=== PATIENT | female | born 2000 | race Two or more races ===

== ENCOUNTER 2024-06-24 11:48 | Emergency (ER) | payer OTHER, SELFPAY ==
[2024-06-24 11:51] VITALS: BP 145/93; PULSE 88; TEMP 36.8; O2SAT 99; BMI 45.7
--- NOTE | 2024-06-24 12:07 | ED.GENADUL1 ---
HPI HPI - General Adult General Chief complaint: Allergic Reaction Stated complaint: SKIN IRRITATION Time Seen by Provider: 06/24/24 11:52 Source: patient Mode of arrival: walk-in Limitations: no limitations History of Present Illness HPI narrative: 24-year-old female presents for pruritic rash. It started on Friday, June 21, 3 days ago. She started Wellbutrin a month ago and then used a new soap over the weekend. It is all over her body and her upper lip has been swollen. She felt like something was in her throat and she was directed here by her PCP. No difficulty swallowing. Related Data Home Medications ?Medication ?Instructions ?Recorded ?Confirmed bupropion HCl 150 mg tablet,12 hr 150 mg PO DAILY 06/24/24 06/24/24 sustained-release Allergies Allergy/AdvReac Type Severity Reaction Status Date / Time No Known Drug Allergies Allergy Verified 06/24/24 11:51 Opioid HPI Opioid Management Most Recent Opioid Data: No Data to Display Review of Systems ROS Narrative A ten point review of systems is negative except as noted above. PFSH PFSH Social History Little interest or pleasure in doing things: not at all Feeling down, depressed, or hopeless: not at all Exam Narrative Exam Narrative: Nurses note and vital signs reviewed and patient is not hypoxic. General: The patient appears well and in no apparent distress. Patient is resting comfortably on cart. Skin: Warm, dry, no pallor noted. There is erythematous rash scattered on various areas of her body including her legs anterior and posterior torso and arms. Head: Normocephalic, atraumatic Eye: Normal conjunctiva, no drainage Ears, Nose, Mouth, and Throat: oral mucosa is moist. Nares patent. Upper lip is mildly swollen. Uvula is not enlarged and she is handling her oral secretions well. No swelling to the floor of her mouth. Cardiovascular: Regular Rate and Rhythm Respiratory: Patient is in no distress, no accessory muscle use, lungs are clear to auscultation, no wheezing, rales or rhonchi Back: non-tender GI: Soft and nontender Musculoskeletal: The patient has no evidence of calf tenderness, no pitting edema, symmetrical pulses noted bilaterally Neurological: A&O, normal speech Psychiatric: Cooperative Constitutional Vital Signs, click to edit/add: Last Vital Signs Temp 98.3 F 06/24/24 11:51 Pulse 82 06/24/24 13:18 Resp 18 06/24/24 13:18 BP 124/79 06/24/24 13:18 Pulse Ox 100 06/24/24 13:18 O2 Del Method Room Air 06/24/24 13:18 Course Vital Signs Vital signs: Vital Signs Temperature 98.3 F 06/24/24 11:51 Pulse Rate 88 06/24/24 11:51 Respiratory Rate 20 06/24/24 11:51 Blood Pressure 145/93 H 06/24/24 11:51 Pulse Oximetry 99 06/24/24 11:51 Oxygen Delivery Method Room Air 06/24/24 11:51 Temperature 98.3 F 06/24/24 11:51 Pulse Rate 82 06/24/24 13:18 Respiratory Rate 18 06/24/24 13:18 Blood Pressure 124/79 06/24/24 13:18 Pulse Oximetry 100 06/24/24 13:18 Oxygen Delivery Method Room Air 06/24/24 13:18 Medical Decision Making MDM Narrative Medical decision making narrative: The patient was given IV Benadryl and Solu-Medrol and is improving somewhat. She was already given a prescription for an oral steroid that she is able to black pickler today. Treatment diagnosis and follow-up were discussed with the patient. The possibility that this is the Wellbutrin was discussed with her. 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
[2024-06-24] MEDS: DIPHENHYDRAMINE HCL 50 MG/ML VIAL 25 MG IV (12:15)
[2024-06-24] MEDS: METHYLPREDNISOLONE SOD SUCC PF 125 MG/2 ML VIAL IVP (12:15)
[2024-06-24 13:18] VITALS: BP 124/79; PULSE 82; O2SAT 100
[2024-06-24 14:15] VITALS: PULSE 82; O2SAT 100
== END 2024-06-24 14:21 | disposition home or self-care (01) ==
PROVIDERS: Emergency Provider Emergency Medicine
DX: T78.40XA Allergy, unspecified, initial encounter (principal)
CPT/HCPCS: 96374; 96375; 99284; J1200; J2919

== ENCOUNTER 2025-01-09 15:40 | Emergency (ER) | payer OTHER, SELFPAY ==
[2025-01-09 15:45] VITALS: BP 176/99; PULSE 55; TEMP 36.6; O2SAT 100; BMI 40.9
--- OUTSIDE RECORDS SUMMARY | 2025-01-09 15:47 | XMS_ITS | CCD ---
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 Name Role Phone MALACHI, DR SUMNER Primary Care Unavailable KARASIK ., DR RIVERA Attending Unavailabl e KARASIK ., DR RIVERA Admitting Unavailabl e KARASIK ., DR RIVERA Attending Unavailabl e MISC, DR SUMNER Primary Care Unavailable KARASIK ., DR RIVERA Consulting Unavailabl e KARASIK ., DR RIVERA Admitting Unavailabl e KARASIK ., DR RIVERA Attending Unavailabl e MISC, DR SUMNER Primary Care Unavailable KARASIK ., DR RIVERA Consulting Unavailabl e KARASIK ., DR RIVERA Admitting Unavailabl e WEST, DR BERHANE Montemayor Consulting Unavailable MISC, DR SUMNER Primary Care Unavailable KARASIK ., DR RIVERA Consulting Unavailabl e KARASIK ., DR RIVERA Admitting Unavailabl e KARASIK ., DR RIVERA Attending Unavailabl e WEST, DR BERHANE Montemayor Consulting Unavailable KARASIK ., DR RIVERA Admitting Unavailabl e MISC, DR SUMNER Primary Care Unavailable KARASIK ., DR RIVERA Attending Unavailabl e KARASIK ., DR RIVERA Consulting Unavailabl e KARASIK ., DR RIVERA Attending Unavailabl e MISC, DR SUMNER Primary Care Unavailable KARASIK ., DR RIVERA Consulting Unavailabl e KARASIK ., DR RIVERA Admitting Unavailabl e KARASIK ., DR RIVERA Admitting Unavailabl e MISC, DR SUMNER Primary Care Unavailable KARASIK ., DR RIVERA Attending Unavailabl e KARASIK ., DR RIVERA Consulting Unavailabl e ZIEBJESSICA, DR BALJINDER Shah Consulting Unavailable KARASIK ., DR RIVERA Procedure Practitioner Yvette LUIS Rashid Consulting Unavailable SHAWANDA DUBON Consulting Unavailable AMY, GOMEZ Consulting Unavailable CHRISTY KNOTT Consulting Unavailable DELMY IBRAHIM Consulting Unavailable FLAVIA BACK Consulting UnavailMARTHA Buitrago Consulting Unavailable TIM YARBROUGH Unavailable SERVICES, [facility] Unava ilable SERVICES, [facility] Unava ilable Problems Active Problems Problem Classification Problem Date Documented Da te Episodic/Chronic Allergic reactions (3 sources) Allergy, unspecified, initial encounter; Translations: [Allergic reaction] Onset: 06-23-2024 Episodic Menstrual disorders (4 sources) Irregular menstruation, unspecified; Translations: [IRREGULAR MENSTRUATION UNSPECIFIED] Onset: 01-02-2022 Chronic Other complications of ; puerperium affecting management of mother (1 source) Obesity complicating childbirth; Translations: [OBESITY COMPLICATING CHILDBIRTH] Onset: 07-01-2022 Chronic Other complications of ; puerperium affecting management of mother (1 source) Anemia of the puerperium; Translations: [ANEMIA OF THE PUERPERIUM] Onset: 07-01-2022 Chronic Other nutritional; endocrine; and metabolic disorders (1 source) Morbid (severe) obesity due to excess calories; Translations: [MORBID SEVERE OBES D/T EXCESS VALERIA] Onset: 07-01-2022 Chronic Unclassified (1 source) CONTACT W/AND (SUSP) EXPOS COVID-19; Translations: [CONTACT W/AND (SUSP) EXPOS COVID-19] Onset: 07-01-2022 Past or Other Problems Problem Classification Problem Date Documented Date Episodic/Chronic Contraceptive and procreative management (1 source) Encounter for sterilization; Translations: [ENCOUNTER FOR STERILIZATION] Onset: 07-01-2022 Episodic Deficiency and other anemia (1 source) Anemia, unspecified; Translations: [ANEMIA UNSPECIFIED] Onset: 07-01-2022 Episodic Hypertension complicating ; childbirth and the puerperium (3 sources) Unspecified pre-eclampsia, complicating childbirth; Translations: [UNSPECIFIED PRE-ECLAMPSIA COMP CB] Onset: 06-13-2022 Episodic Immunizations and screening for infectious disease (2 sources) Encounter for screening for infections with a predominantly sexual mode of transmission; Translations: [Contact with and (suspected) exposure to infections with a predominantly sexual mode of transmission] Onset: 01-04-2022 Episodic Other complications of (1 source) Twins, both liveborn; Translations: [TWINS BOTH LIVEBORN] Onset: 07-01-2022 Episodic Other and delivery including normal (13 sources) Encounter for routine follow-up; Translations: [Twin , dichorionic/diamniot ic, third trimester] Onset: 01-02-2022 Episodic Other screening for suspected conditions (not mental disorders or infectious disease) (10 sources) Encounter for screening for Streptococcus B; Translations: [Encounter for screening for diabetes mellitus] Onset: 01-04-2022 Episodic Previous (1 source) Maternal care for unspecified type scar from previous delivery; Translations: [MAT CARE UNS TYPE SCAR PREV C-SECT] Onset: 07-01-2022 Episodic Residual codes; unclassified (1 source) 36 weeks gestation of ; Translations: [36 WEEKS GESTATION OF ] Onset: 07-01-2022 Episodic Residual codes; unclassified (1 source) 34 weeks gestation of ; Translations: [34 WEEKS GESTATION OF ] Onset: 06-05-2022 Episodic Substance-related disorders (2 sources) Drug use complicating childbirth; Translations: [Cannabis use, unspecified, uncomplicated] Onset: 07-01-2022 Episodic Results Test Name Value Interpretation Reference Range Facil ity CANNABINOID (THC) CONFIRMATI ON, URINEon 06-20-2022 Cannabinoid Positive Abnormal [facility] Comment on above: Performed By: #### C MP, URIC, LDH, ALT, AST #### [facility] [address] [place] [address] Dr. Tegan Nash THC GC/MS Conf 86 ng/mL Normal Cutoff=10 [facility] Comment on above: Performed By: #### C MP, URIC, LDH, ALT, AST #### [facility] [address] [address] [address] Tegan Sarabia CBC AUTO DIFFon 06-14-2022 BASO # 0.0 103/ul Normal 0.0-0.1 [facility] Comment on above: Performed By: #### C BC #### [facility] [address] [place] [address] Dr. Tegan Sarabia Basophils/100 WBC (Bld) 0.1 % Critically low 0.2-2.0 [facility] Comment on above: Performed By: #### C BC #### [facility] [address] [place] [address] Dr. Tegan Sarabia EO # 0.0 103/ul Normal 0.0-0.7 [facility] Comment on above: Performed By: #### C BC #### [facility] [address] [address] [address] Tegan Sarabia Eosinophils/100 WBC (Bld) 0.0 % Critically low 0.9-7.0 [facility] Comment on above: Performed By: #### C BC #### [facility] [address] [place] [address] Dr. Tegan Sarabia Erythrocyte distribution width (RBC) [Ratio] 15.1 % Critically high 11.0-15.0 [facility] Comment on above: Performed By: #### C BC #### [facility] [address] [place] [address] Dr. Tegan Sarabia Hematocrit (Bld) [Volume fraction] 26.7 % Critically low 36.0-48.0 [facility] Comment on above: Performed By: #### C BC #### [facility] [address] [place] [address] Dr. Tegan Sarabia Hemoglobin (Bld) [Mass/Vol] 8.4 g/dL Critically low 12.0-16.0 [facility] Comment on above: Performed By: #### C BC #### [facility] [address] [place] [address] Dr. Tegan Sarabia IG # 0.18 10e3/ul Critically high 0.00-0.03 [facility] Comment on above: Performed By: #### C BC #### [facility] [address] [place] [address] Dr. Tegan Sarabia IG % 1.3 % Critically high 0.0-0.5 [facility] Comment on above: Performed By: #### C BC #### [facility] [address] [place] [address] Dr. Tegan Sarabia LYMPH # 1.3 103/ul Normal 1.2-3.8 [facility] Comment on above: Performed By: #### C BC #### [facility] [address] [place] [address] Dr. Tegan Sarabia Lymphocytes/100 WBC (Bld) 9.6 % Critically low 20.5-60.0 [facility] Comment on above: Performed By: #### C BC #### [facility] [address] [place] [address] Dr. Tegan Sarabia MANUAL DIFF REQ NO Normal [facility] Comment on above: Performed By: #### C BC #### [facility] [address] [place] [address] Dr. Tegan Sarabia MCH (RBC) [Entitic mass] 27.0 pg Normal 26.7-34.0 [facility] Comment on above: Performed By: #### C BC #### [facility] [address] [place] [address] Dr. Tegan Sarabia MCHC (RBC) [Mass/Vol] 31.5 g/dL Normal 29.9-35.2 [facility] Comment on above: Performed By: #### C BC #### [facility] [address] [place] [address] Dr. Tegan Sarabia MCV (RBC) [Entitic vol] 85.9 fL Normal 81.0-99.0 [facility] Comment on above: Performed By: #### C BC #### [facility] [address] [place] [address] Dr. Tegan Sarabia MONO # 0.6 103/ul Normal 0.3-0.8 [facility] Comment on above: Performed By: #### C BC #### [facility] [address] [place] [address] Dr. Tegan Sarabia Monocytes/100 WBC (Bld) 4.7 % Normal 1.7-12.0 [facility] Comment on above: Performed By: #### C BC #### [facility] [address] [place] [address] Dr. Tegan Sarabia NEUT # 11.4 103/ul Critically high 1.4-6.5 [facility] Comment on above: Performed By: #### C BC #### [facility] [address] [address] [address] Tegan Sarabia Neutrophils/100 WBC (Bld) 84.3 % Critically high 43.0-75.0 [facility] Comment on above: Performed By: #### C BC #### [facility] [address] [address] [address] Tegan Sarabia Platelet mean volume (Bld) [Entitic vol] 13.1 fL Normal 9.5-13.5 [facility] Comment on above: Performed By: #### C BC #### [facility] [address] [address] [address] Tegan Sarabia PLT 194 103/ul Normal 150-450 [facility] Comment on above: Performed By: #### C BC #### [facility] [address] [place] [address] Dr. Tegan Sarabia RBC 3.11 106/ul Critically low 4.20-5.40 [facility] Comment on above: Performed By: #### C BC #### [facility] [address] [place] [address] Dr. Tegan Sarabia WBC 13.5 103/ul Critically high 4.0-11.0 [facility] Comment on above: Performed By: #### C BC #### [facility] [address] [place] [address] Dr. Tegan Sarabia LDHon 06-14-2022 LDH 219 U/L Normal 81-234 [facility] Comment on above: Performed By: #### C MP, URIC, LDH, ALT, AST #### [facility] [address] [place] [address] Dr. Tegan Sarabia PROF 14(COMP METB)on 022 Albumin [Mass/Vol] 1.7 g/dL Critically low 3.4-5.0 [facility] Comment on above: Performed By: #### C MP, URIC, LDH, ALT, AST #### [facility] [address] [place] [address] Dr. Tegan Sarabia Albumin/Globulin [Mass ratio] 0.5 {ratio} Normal [facility] Comment on above: Performed By: #### C MP, URIC, LDH, ALT, AST #### [facility] [address] [place] [address] Dr. Tegan Sarabia ALP [Catalytic activity/Vol] 165 U/L Critically high 46-116 [facility] Comment on above: Performed By: #### C MP, URIC, LDH, ALT, AST #### [facility] [address] [place] [address] Dr. Tegan Sarabia ALT [Catalytic activity/Vol] 21 U/L Normal 14-59 [facility] Comment on above: Performed By: #### C MP, URIC, LDH, ALT, AST #### [facility] [address] [place] [address] Dr. Tegan Sarabia Anion gap [Moles/Vol] 10.4 mmol/L Normal [facility] Comment on above: Performed By: #### C MP, URIC, LDH, ALT, AST #### [facility] [address] [place] [address] Dr. Tegan Sarabia AST [Catalytic activity/Vol] 23 U/L Normal 15-37 [facility] Comment on above: Performed By: #### C MP, URIC, LDH, ALT, AST #### [facility] [address] [place] [address] Dr. Tegan Sarabia Bilirubin [Mass/Vol] 0.2 mg/dL Normal 0.2-1.0 [facility] Comment on above: Performed By: #### C MP, URIC, LDH, ALT, AST #### [facility] [address] [place] [address] Dr. Tegan Sarabia Calcium [Mass/Vol] 7.5 mg/dL Critically low 8.5-10.1 [facility] Comment on above: Performed By: #### C MP, URIC, LDH, ALT, AST #### [facility] [address] [place] [address] Dr. Tegan Sarabia Chloride [Moles/Vol] 106 mmol/L Normal 98-107 [facility] Comment on above: Performed By: #### C MP, URIC, LDH, ALT, AST #### [facility] [address] [address] [address] Tegan Sarabia CO2 [Moles/Vol] 24.2 mmol/L Normal 21.0-32.0 [facility] Comment on above: Performed By: #### C MP, URIC, LDH, ALT, AST #### [facility] [address] [address] [address] Tegan Sarabia Creatinine [Mass/Vol] 0.78 mg/dL Normal 0.55-1.02 [facility] Comment on above: Performed By: #### C MP, URIC, LDH, ALT, AST #### [facility] [address] [address] [address] Tegan Sarabia EGFR-AF BULGARIAN >60 Normal >=60 [facility] Comment on above: Performed By: #### C MP, URIC, LDH, ALT, AST #### [facility] [address] [place] [address] Dr. Tegan Sarabia EGFR-NON AF BULGARIAN >60 Normal >=60 [facility] Comment on above: Performed By: #### C MP, URIC, LDH, ALT, AST #### [facility] [address] [address] [address] Tegan Sarabia Globulin (S) [Mass/Vol] 3.1 g/dL Normal [facility] Comment on above: Performed By: #### C MP, URIC, LDH, ALT, AST #### [facility] [address] [address] [address] Tegan Sarabia Glucose [Mass/Vol] 114 mg/dL Critically high 74-106 [facility] Comment on above: Performed By: #### C MP, URIC, LDH, ALT, AST #### [facility] [address] [address] [address] Tegan Sarabia Potassium [Moles/Vol] 4.6 mmol/L Normal 3.5-5.1 [facility] Comment on above: Performed By: #### C MP, URIC, LDH, ALT, AST #### [facility] [address] [address] [address] Tegan Sarabia Protein [Mass/Vol] 4.8 g/dL Critically low 6.4-8.2 [facility] Comment on above: Performed By: #### C MP, URIC, LDH, ALT, AST #### [facility] [address] [address] [address] Tegan Sarabia Sodium [Moles/Vol] 136 mmol/L Normal 136-145 [facility] Comment on above: Performed By: #### C MP, URIC, LDH, ALT, AST #### [facility] [address] [address] [address] Tegan Sarabia Urea nitrogen [Mass/Vol] 10.0 mg/dL Normal 7.0-18.0 [facility] Comment on above: Performed By: #### C MP, URIC, LDH, ALT, AST #### [facility] [address] [place] [address] Dr. Tegan Sarabia Urea nitrogen/Creatinine [Mass ratio] 12.8 mg/mg Normal [facility] Comment on above: Performed By: #### C MP, URIC, LDH, ALT, AST #### [facility] [address] [place] [address] Dr. Tegan Sarabia URIC ACID SERUMon 06-14-2022 Urate [Mass/Vol] 4.9 mg/dL Normal 2.6-6.0 [facility] Comment on above: Performed By: #### C MP, URIC, LDH, ALT, AST #### [facility] [address] [place] [address] Dr. Tegan Sarabia [facility]on 05-24 SARS-CoV-2 (COVID-19) RNA GLORIA+probe Ql (Unsp spec) Not detected Normal NOT DETECTED [facility] Comment on above: Result Comment: When diagnostic testing is negative, the possibility of a false negative should be considered in the context of a patient's recent exposures and the presence of clinical signs and symptoms consistent with SARS-CoV-2. This test is not yet approved or cleared by the [place] FDA. When there are no FDA-approved or cleared tests available, and other criteria are met, FDA can make tests available under an emergency access mechanism called an Emergency Use Authorization (EUA). The EUA for this test is supported by the [place] of Health and Human Service's declaration that circumstances exist to justify the emergency use of in vitro diagnostics for the detection and/or diagnosis of the virus that causes COVID-19. This EUA will remain in effect for the duration of the COVID-19 declaration justifying emergency of IVDs, unless it is terminated or revoked by the FDA (after which the test may no longer be used). Performed By: #### C VDTBH #### [facility] [address] [place] [address] Dr. Tegan Sarabia DRUG SCREEN RAPID (URINE)on 06-13-2022 AMP Negative Normal NEGATIVE [facility] Comment on above: Performed By: #### C MP, URIC, LDH, ALT, AST #### [facility] [address] [place] [address] Dr. Tegan Sarabia BAR Negative Normal NEGATIVE [facility] Comment on above: Performed By: #### C MP, URIC, LDH, ALT, AST #### [facility] [address] [place] [address] Dr. Tegan Sarabia BUP Negative Normal NEGATIVE [facility] Comment on above: Performed By: #### C MP, URIC, LDH, ALT, AST #### [facility] [address] [place] [address] Dr. Tegan Sarabia BZO Negative Normal NEGATIVE [facility] Comment on above: Performed By: #### C MP, URIC, LDH, ALT, AST #### [facility] [address] [place] [address] Dr. Tegan Sarabia RUTH Negative Normal NEGATIVE [facility] Comment on above: Performed By: #### C MP, URIC, LDH, ALT, AST #### [facility] [address] [place] [address] Dr. Tegan Sarabia CUT-OFFS SEE BELOW Normal [facility] Comment on above: Result Comment: AMP (Amphetamine): 500ng/mL, BAR (Barbituates): 200 ng/mL, BZO (Benzodiazepines): 150 ng/mL, BUP (Buprenorphine): 10 ng/mL, RUTH (Cocaine): 150 ng/mL, mAMP (Methamphetamine): 500 ng/mL, MTD (Methadone): 200 ng/mL, OPI (Opiates): 100 ng/mL, OXY (Oxycodone): 100 ng/mL, PCP (Phencyclidine): 25 ng/mL, PPX (Propoxyphene): 300 ng/mL, THC (Cannabinoids): 50 ng/mL, TCA (Trycyclic Antidepressants): 300 ng/mL Performed By: #### C MP, URIC, LDH, ALT, AST #### [facility] [address] [place] [address] Dr. Tegan Sarabia DRUG CUT HEADER DRUG CLASS TEST SYSTEM CUT-OFF CONCENTRATIONS ARE FOLLOWS: Normal [facility] Comment on above: Performed By: #### C MP, URIC, LDH, ALT, AST #### [facility] [address] [place] [address] Dr. Tegan Sarabia mAMP Negative Normal NEGATIVE [facility] Comment on above: Performed By: #### C MP, URIC, LDH, ALT, AST #### [facility] [address] [place] [address] Dr. Tegan Sarabia MTD Negative Normal NEGATIVE [facility] Comment on above: Performed By: #### C MP, URIC, LDH, ALT, AST #### [facility] [address] [place] [address] Dr. Tegan Sarabia OPI Negative Normal NEGATIVE [facility] Comment on above: Performed By: #### C MP, URIC, LDH, ALT, AST #### [facility] [address] [place] [address] Dr. Tegan Sarabia OXY Negative Normal NEGATIVE [facility] Comment on above: Performed By: #### C MP, URIC, LDH, ALT, AST #### [facility] [address] [place] [address] Dr. Tegan Sarabia PCP Negative Normal NEGATIVE [facility] Comment on above: Performed By: #### C MP, URIC, LDH, ALT, AST #### [facility] [address] [place] [address] Dr. Tegan Sarabia PPX Negative Normal NEGATIVE [facility] Comment on above: Performed By: #### C MP, URIC, LDH, ALT, AST #### [facility] [address] [place] [address] Dr. Tegan Sarabia TCA Negative Normal NEGATIVE [facility] Comment on above: Performed By: #### C MP, URIC, LDH, ALT, AST #### [facility] [address] [place] [address] Dr. Tegan Sarabia THC Positive Abnormal NEGATIVE [facility] Comment on above: Performed By: #### C MP, URIC, LDH, ALT, AST #### [facility] [address] [place] [address] Dr. Tegan Sarabia PROTEIN 24HR URINEon 022 T PROT, 24 HR UR 4402.1 mg/24 hr Critically high <=149.1 [facility] Comment on above: Performed By: #### C MP, URIC, LDH, ALT, AST #### [facility] [address] [place] [address] Dr. Tegan Sarabia UR PROT 167.7 mg/dL Critically high <=11.9 [facility] Comment on above: Performed By: #### C MP, URIC, LDH, ALT, AST #### [facility] [address] [place] [address] Dr. Tegan Sarabia UR TOT VOL 2625 ml/[address] [facility] Comment on above: Performed By: #### C MP, URIC, LDH, ALT, AST #### [facility] [address] [place] [address] Dr. Tegan Sarabia TYPE AND SCREENon 06-13-2022 TYPE AND SCREEN Negative Normal [facility] Comment on above: Performed By: #### C MP, URIC, LDH, ALT, AST #### [facility] [address] [place] [address] Dr. Tegan Sarabia CBC AUTO DIFFon 06-12-2022 BASO # 0.0 103/ul Normal 0.0-0.1 [facility] Comment on above: Performed By: #### C MP, URIC, LDH, ALT, AST #### [facility] [address] [place] [address] Dr. Tegan Sarabia Basophils/100 WBC (Bld) 0.1 % Critically low 0.2-2.0 [facility] Comment on above: Performed By: #### C MP, URIC, LDH, ALT, AST #### [facility] [address] [place] [address] Dr. Tegan Sarabia EO # 0.1 103/ul Normal 0.0-0.7 [facility] Comment on above: Performed By: #### C MP, URIC, LDH, ALT, AST #### [facility] [address] [place] [address] Dr. Tegan Sarabia Eosinophils/100 WBC (Bld) 1.3 % Normal 0.9-7.0 [facility] Comment on above: Performed By: #### C MP, URIC, LDH, ALT, AST #### [facility] [address] [place] [address] Dr. Tegan Sarabia Erythrocyte distribution width (RBC) [Ratio] 14.8 % Normal 11.0-15.0 [facility] Comment on above: Performed By: #### C MP, URIC, LDH, ALT, AST #### [facility] [address] [place] [address] Dr. Tegan Sarabia Hematocrit (Bld) [Volume fraction] 32.5 % Critically low 36.0-48.0 [facility] Comment on above: Performed By: #### C MP, URIC, LDH, ALT, AST #### [facility] [address] [place] [address] Dr. Tegan Sarabia Hemoglobin (Bld) [Mass/Vol] 10.2 g/dL Critically low 12.0-16.0 [facility] Comment on above: Performed By: #### C MP, URIC, LDH, ALT, AST #### [facility] [address] [place] [address] Dr. Tegan Sarabia IG # 0.07 10e3/ul Critically high 0.00-0.03 [facility] Comment on above: Performed By: #### C MP, URIC, LDH, ALT, AST #### [facility] [address] [place] [address] Dr. Tegan Sarabia IG % 0.9 % Critically high 0.0-0.5 [facility] Comment on above: Performed By: #### C MP, URIC, LDH, ALT, AST #### [facility] [address] [place] [address] Dr. Tegan Sarabia LYMPH # 1.4 103/ul Normal 1.2-3.8 [facility] Comment on above: Performed By: #### C MP, URIC, LDH, ALT, AST #### [facility] [address] [place] [address] Dr. Tegan Sarabia Lymphocytes/100 WBC (Bld) 17.8 % Critically low 20.5-60.0 [facility] Comment on above: Performed By: #### C MP, URIC, LDH, ALT, AST #### [facility] [address] [place] [address] Dr. Tegan Sarabia MANUAL DIFF REQ NO Normal [facility] Comment on above: Performed By: #### C MP, URIC, LDH, ALT, AST #### [facility] [address] [place] [address] Dr. Tegan Sarabia MCH (RBC) [Entitic mass] 26.7 pg Normal 26.7-34.0 [facility] Comment on above: Performed By: #### C MP, URIC, LDH, ALT, AST #### [facility] [address] [place] [address] Dr. Tegan Sarabia MCHC (RBC) [Mass/Vol] 31.4 g/dL Normal 29.9-35.2 [facility] Comment on above: Performed By: #### C MP, URIC, LDH, ALT, AST #### [facility] [address] [place] [address] Dr. Tegan Sarabia MCV (RBC) [Entitic vol] 85.1 fL Normal 81.0-99.0 [facility] Comment on above: Performed By: #### C MP, URIC, LDH, ALT, AST #### [facility] [address] [place] [address] Dr. Tegan Sarabia MONO # 0.6 103/ul Normal 0.3-0.8 [facility] Comment on above: Performed By: #### C MP, URIC, LDH, ALT, AST #### [facility] [address] [place] [address] Dr. Tegan Sarabia Monocytes/100 WBC (Bld) 7.2 % Normal 1.7-12.0 [facility] Comment on above: Performed By: #### C MP, URIC, LDH, ALT, AST #### [facility] [address] [place] [address] Dr. Tegan Sarabia NEUT # 5.7 103/ul Normal 1.4-6.5 [facility] Comment on above: Performed By: #### C MP, URIC, LDH, ALT, AST #### [facility] [address] [place] [address] Dr. Tegan Sarabia Neutrophils/100 WBC (Bld) 72.7 % Normal 43.0-75.0 [facility] Comment on above: Performed By: #### C MP, URIC, LDH, ALT, AST #### [facility] [address] [place] [address] Dr. Tegan Sarabia Platelet mean volume (Bld) [Entitic vol] 11.6 fL Normal 9.5-13.5 [facility] Comment on above: Performed By: #### C MP, URIC, LDH, ALT, AST #### [facility] [address] [place] [address] Dr. Tegan Sarabia RBC 3.82 106/ul Critically low 4.20-5.40 [facility] Comment on above: Performed By: #### C MP, URIC, LDH, ALT, AST #### [facility] [address] [place] [address] Dr. Tegan Sarabia WBC 7.8 103/ul Normal 4.0-11.0 [facility] Comment on above: Performed By: #### C MP, URIC, LDH, ALT, AST #### [facility] [address] [place] [address] Dr. Tegan Sarabia LDHon 06-12-2022 LDH 179 U/L Normal 81-234 [facility] Comment on above: Performed By: #### C MP, URIC, LDH, ALT, AST #### [facility] [address] [place] [address] Dr. Tegan Sarabia PLATELET COUNTon 06-12-2022 PLT 175 103/ul Normal 150-450 [facility] Comment on above: Performed By: #### C MP, URIC, LDH, ALT, AST #### [facility] [address] [place] [address] Dr. Tegan Sarabia PROF 14(COMP METB)on 022 Albumin [Mass/Vol] 2.0 g/dL Critically low 3.4-5.0 [facility] Comment on above: Performed By: #### C MP, URIC, LDH, ALT, AST #### [facility] [address] [place] [address] Dr. Tegan Sarabia Albumin/Globulin [Mass ratio] 0.6 {ratio} Normal [facility] Comment on above: Performed By: #### C MP, URIC, LDH, ALT, AST #### [facility] [address] [place] [address] Dr. Tegan Sarabia ALP [Catalytic activity/Vol] 233 U/L Critically high 46-116 [facility] Comment on above: Performed By: #### C MP, URIC, LDH, ALT, AST #### [facility] [address] [place] [address] Dr. Tegan Sarabia ALT [Catalytic activity/Vol] 16 U/L Normal 14-59 [facility] Comment on above: Performed By: #### C MP, URIC, LDH, ALT, AST #### [facility] [address] [place] [address] Dr. Tegan Sarabia Anion gap [Moles/Vol] 11.8 mmol/L Normal [facility] Comment on above: Performed By: #### C MP, URIC, LDH, ALT, AST #### [facility] [address] [place] [address] Dr. Tegan Sarabia Bilirubin [Mass/Vol] 0.2 mg/dL Normal 0.2-1.0 [facility] Comment on above: Performed By: #### C MP, URIC, LDH, ALT, AST #### [facility] [address] [place] [address] Dr. Tegan Sarabia Calcium [Mass/Vol] 8.2 mg/dL Critically low 8.5-10.1 [facility] Comment on above: Performed By: #### C MP, URIC, LDH, ALT, AST #### [facility] [address] [place] [address] Dr. Tegan Sarabia Chloride [Moles/Vol] 107 mmol/L Normal 98-107 [facility] Comment on above: Performed By: #### C MP, URIC, LDH, ALT, AST #### [facility] [address] [place] [address] Dr. Tegan Sarabia CO2 [Moles/Vol] 23.3 mmol/L Normal 21.0-32.0 [facility] Comment on above: Performed By: #### C MP, URIC, LDH, ALT, AST #### [facility] [address] [place] [address] Dr. Tegan Sarabia Creatinine [Mass/Vol] 0.71 mg/dL Normal 0.55-1.02 [facility] Comment on above: Performed By: #### C MP, URIC, LDH, ALT, AST #### [facility] [address] [place] [address] Dr. Tegan Sarabia EGFR-AF BULGARIAN >60 Normal >=60 [facility] Comment on above: Performed By: #### C MP, URIC, LDH, ALT, AST #### [facility] [address] [place] [address] Dr. Tegan Sarabia EGFR-NON AF BULGARIAN >60 Normal >=60 [facility] Comment on above: Performed By: #### C MP, URIC, LDH, ALT, AST #### [facility] [address] [place] [address] Dr. Tegan Sarabia Globulin (S) [Mass/Vol] 3.5 g/dL Normal [facility] Comment on above: Performed By: #### C MP, URIC, LDH, ALT, AST #### [facility] [address] [place] [address] Dr. Tegan Sarabia Glucose [Mass/Vol] 75 mg/dL Normal 74-106 [facility] Comment on above: Performed By: #### C MP, URIC, LDH, ALT, AST #### [facility] [address] [address] [address] Tegan Sarabia Potassium [Moles/Vol] 4.1 mmol/L Normal 3.5-5.1 [facility] Comment on above: Performed By: #### C MP, URIC, LDH, ALT, AST #### [facility] [address] [address] [address] Tegan Sarabia Protein [Mass/Vol] 5.5 g/dL Critically low 6.4-8.2 [facility] Comment on above: Performed By: #### C MP, URIC, LDH, ALT, AST #### [facility] [address] [place] [address] Dr. Tegan Sarabia Sodium [Moles/Vol] 138 mmol/L Normal 136-145 [facility] Comment on above: Performed By: #### C MP, URIC, LDH, ALT, AST #### [facility] [address] [address] [address] Tegan Sarabia Urea nitrogen [Mass/Vol] 9.0 mg/dL Normal 7.0-18.0 [facility] Comment on above: Performed By: #### C MP, URIC, LDH, ALT, AST #### [facility] [address] [place] [address] Dr. Tegan Sarabia Urea nitrogen/Creatinine [Mass ratio] 12.7 mg/mg Normal [facility] Comment on above: Performed By: #### C MP, URIC, LDH, ALT, AST #### [facility] [address] [address] [address] Tegan Sarabia PROTIMEon 06-12-2022 INR Coag (PPP) [Relative time] {INR} Normal [facility] Comment on above: Performed By: #### C MP, URIC, LDH, ALT, AST #### [facility] [address] [place] [address] Dr. Tegan Sarabia INR GUIDELINES SEE BELOW Normal [facility] Comment on above: Result Comment: ANGELES RED INR: 2.0 - 3.0 CONDITIONS NOT LISTED BELOW 2.5 - 3.5 FOR PROSTHETIC HEART VALVE REPLACEMENT 2.5 - 3.5 RECURRENT THROMBOSIS Performed By: #### C MP, URIC, LDH, ALT, AST #### [facility] [address] [place] [address] Dr. Tegan Sarabia PT Coag (PPP) [Time] 9.8 s Normal 9.0-11.6 [facility] Comment on above: Performed By: #### C MP, URIC, LDH, ALT, AST #### [facility] [address] [place] [address] Dr. Tegan Sarabia PTTon 06-12-2022 aPTT Coag (Bld) [Time] 27.2 s Normal 22.3-36.2 [facility] Comment on above: Performed By: #### C MP, URIC, LDH, ALT, AST #### [facility] [address] [place] [address] Dr. Tegan Sarabia SGOTon 06-12-2022 AST [Catalytic activity/Vol] 15 U/L Normal 15-37 [facility] Comment on above: Performed By: #### C MP, URIC, LDH, ALT, AST #### [facility] [address] [place] [address] Dr. Tegan Sarabia URIC ACID SERUMon 06-12-2022 Urate [Mass/Vol] 4.8 mg/dL Normal 2.6-6.0 [facility] Comment on above: Performed By: #### C MP, URIC, LDH, ALT, AST #### [facility] [address] [place] [address] Dr. Tegan Sarabia US PREG BIOPHYSICAL W NST AD D GESTon 06-12-2022 US PREG BIOPHYSICAL W NST ADD GEST EXAMINATION: US PREG BIOPHYSICAL W NST ADD GEST HISTORY: Personal history of other complications of , childbirth and the puerperium COMPARISON: Ultrasound growth 05/28/2022 TECHNIQUE: Ultrasound biophysical profile was performed in the radiology department. non-reactive stress testing was performed by nursing staff in the birthing center FINDINGS: BABY A BREATHING MOVEMENTS: 2.0 GROSS BODY MOVEMENTS: 2.0 TONE: 2.0 QUALITATIVE AMNIOTIC FLUID VOLUME: 2.0 PRESENTATION: CEPHALIC HEART RATE: 140 bpm AMNIOTIC FLUID VOLUME: Largest pocket 2.4 x 2.9 cm GESTATIONAL AGE: 36 weeks 5 days BABY B BREATHING MOVEMENTS: 2.0 GROSS BODY MOVEMENTS: 2.0 TONE: 2.0 QUALITATIVE AMNIOTIC FLUID VOLUME: 2.0 PRESENTATION: CEPHALIC HEART RATE: 151 bpm AMNIOTIC FLUID VOLUME: Largest pocket 2.4 x 2.6 cm GESTATIONAL AGE: 36 weeks 5 days CONCLUSION: Total biophysical profile score for baby A 8.0 and baby B 8.0. Electronically authenticated by: BALJINDER MURILLO Date: 2022-06-12 17:36 Normal [facility] US PREG GROWTH TWINSon 06-12 US PREG GROWTH TWINS EXAMINATION: US PRE G GROWTH TWINS HISTORY: Personal history of other complications of , childbirth and the puerperium COMPARISON: Ultrasound growth 05/28/2022 FINDINGS: NUMBER: 2 FETUS 1 POSITION: AMNIOTIC FLUID VOLUME: Normal for age with a maximum vertical pocket of 2.4 x 2.9 cm. BIPARIETAL DIAMETER: 36 weeks, 0 days HEAD CIRCUMFERENCE: 36 weeks, 6 days ABD CIRCUMFERENCE: 38 weeks, 5 days FEMUR LENGTH: 32 weeks, 0 days; <3% ESTIMATED WEIGHT: 3007 g; 54% HEART RATE: 140 bpm FETUS 2 POSITION: AMNIOTIC FLUID VOLUME: Normal for age with a maximum vertical pocket of 2.4 x 2.6 cm. BIPARIETAL DIAMETER: 35 weeks, 5 days HEAD CIRCUMFERENCE: 37 weeks, 1 day ABD CIRCUMFERENCE: 38 weeks, 0 days FEMUR LENGTH: 34 weeks, 4 days; 6% ESTIMATED WEIGHT: 3044 g; 58% HEART RATE: 151 bpm CERVICAL LENGTH: Not measured. CLINICAL GA: 36 weeks, 5 days CLINICAL JUAN M: 07/05/2022 ULTRASOUND FETUS 1 GA: 35 weeks 6 days ULTRASOUND FETUS 1 JUAN M: 07/11/2022 ULTRASOUND FETUS 2 GA: 36 weeks 3 days ULTRASOUND FETUS 2 JUAN M: 07/07/2022 IMPRESSION: 1. Live twin intrauterine with growth detailed above. 2. Femur length is 3rd percentile for baby A; 6th percentile for baby B. Electronically authenticated by: BALJINDER MURILLO Date: 2022-06-12 16:11 Normal [facility] CHLAMYDIA/GONOCOCCUS GLORIA (SW AB/URINE/PAPon 06-07-2022 Chlamydia trachomatis, GLORIA Negative Normal Negative [facility] Comment on above: Performed By: #### C MP, URIC, LDH, ALT, AST #### [facility] [address] [place] [address] Dr. Tegan Sarabia Neisseria gonorrhoeae, GLORIA Negative Normal Negative [facility] Comment on above: Performed By: #### C MP, URIC, LDH, ALT, AST #### [facility] [address] [place] [address] Dr. Tegan Sarabia GROUP B STREP CULTUREon 05-23 S. agalactiae Ag Ql (Unsp spec) Culture Observations: NEGATIVE FOR GROUP B STREPTOCOCCUS. Normal [facility] Comment on above: Performed By: #### C MP, URIC, LDH, ALT, AST #### [facility] [address] [place] [address] Dr. Tegan Sarabia GLUCOSE - 1HRon 05-28-2022 Glucose [Mass/Vol] 152 mg/dL Critically high 74-106 [facility] Comment on above: Performed By: #### C MP, URIC, LDH, ALT, AST #### [facility] [address] [place] [address] Dr. Tegan Sarabia HEMOGRAM AND PLATELon 2021 Hematocrit (Bld) [Volume fraction] 34.5 % Critically low 36.0-48.0 [facility] Comment on above: Performed By: #### C MP, URIC, LDH, ALT, AST #### [facility] [address] [place] [address] Dr. Tegan Sarabia Hemoglobin (Bld) [Mass/Vol] 10.9 g/dL Critically low 12.0-16.0 [facility] Comment on above: Performed By: #### C MP, URIC, LDH, ALT, AST #### [facility] [address] [place] [address] Dr. Tegan Sarabia MCH (RBC) [Entitic mass] 27.4 pg Normal 26.7-34.0 [facility] Comment on above: Performed By: #### C MP, URIC, LDH, ALT, AST #### [facility] [address] [address] [address] Tegan Sarabia MCHC (RBC) [Mass/Vol] 31.6 g/dL Normal 29.9-35.2 [facility] Comment on above: Performed By: #### C MP, URIC, LDH, ALT, AST #### [facility] [address] [address] [address] Tegan Sarabia MCV (RBC) [Entitic vol] 86.7 fL Normal 81.0-99.0 [facility] Comment on above: Performed By: #### C MP, URIC, LDH, ALT, AST #### [facility] [address] [address] [address] Tegan Sarabia PLT 186 103/ul Normal 150-450 [facility] Comment on above: Performed By: #### C MP, URIC, LDH, ALT, AST #### [facility] [address] [place] [address] Dr. Tegan Sarabia RBC 3.98 106/ul Critically low 4.20-5.40 [facility] Comment on above: Performed By: #### C MP, URIC, LDH, ALT, AST #### [facility] [address] [place] [address] Dr. Tegan Sarabia WBC 7.7 103/ul Normal 4.0-11.0 [facility] Comment on above: Performed By: #### C MP, URIC, LDH, ALT, AST #### [facility] [address] [place] [address] Dr. Tegan Sarabia US PREG GROWTH TWINSon 05-28 PREG GROWTH TWINS EXAM: US PREG GROWT H TWINS HISTORY: Twin COMPARISON: None. TECHNIQUE: FINDINGS: Fetus 1: Heart Rate: 138 bpm Amniotic Fluid Volume: Subjectively normal Number: 2.0 Position: Cephalic presentation, longitudinal lie Maximum fluid pocket: 3.3 x 4.3 cm BIOMETRY: BPD: 8.6 cm cm; 34 weeks 4 days; 51% HC: 31.0 cm cm; 34 weeks 4 days, 17 % AC: 31.8 cm cm; 35 weeks 5 days, 85 % FL: 6.9 cm cm; 35 weeks 3 days; 33 % EFW: 2669 g, 5 lbs. 14 oz., 70% FL/AC: 21.9 FL/BPD: 80.3 HC/AC: 0.97 GESTATIONAL AGE: Age by EDC: 34 weeks 4 days JUAN M by EDC: 07/05/2022 Age by US: 35 weeks 5 day JUAN M by US: 07/04/2022 Fetus 2: Heart Rate: 149.0 bpm Amniotic Fluid Volume: Subjectively normal Number: 2.0 Position: Cephalic presentation, longitudinal lie Maximum fluid pocket: 2.3 x 2.9 cm BIOMETRY: BPD: 8.6 cm cm; 34 weeks 4 days; 52% HC: 32.1 cmcm; 36 weeks 1 days, 55% AC: 31.8 cm cm; 35 weeks 3 days, 78% FL: 6.9 cm cm; 35 weeks 3 days; 64.5 % % EFW: 2667.9 grams, 5 lbs. 14 oz., 70% FL/AC: 21.9 FL/BPD: 80.3 HC/AC: 1.0 GESTATIONAL AGE: Age by EDC: 34 weeks 4 days JUAN M by EDC: 07/05/2022 Age by US: 35 weeks 1 day JUAN M by US: 07/01/2022 IMPRESSION: Interval growth of twin intrauterine gestation as detailed above Electronically authenticated by: BERHANE SALCIDO Date: 2022-05-28 19:26 Normal [facility] PREG CMP ADD GESTon 02-25 US PREG CMP ADD GEST EXAM: US PREG CMP ADD GEST HISTORY: anatomy study COMPARISON: None. TECHNIQUE: Transabdominal FINDINGS: Number: 2 FETUS 1: Heart Rate: 141 H.B. /min Amniotic Fluid Volume: Subjectively normal position: Cephalic presentation, longitudinal lie Placental Location: Anterior, grade 0. Placental edge is 8 cm from the internal cervical os Cervix Length: 4.9 cm, closed Normally visualized anatomy: Cerebellum, choroid plexus, cisterna magna, lateral cerebral ventricles, orbits, midline falx, hard palate, four-chamber heart, RVOT, LVOT, stomach, kidneys, bladder, umbilical cord insertion into the abdomen, three-vessel cord, cervical spine, thoracic spine, lumbar spine, sacral spine, right upper extremity, left upper extremity, right lower extremity, left lower extremity Suboptimally visualized anatomy: None BIOMETRY: BPD: 5.23 cm, 21 weeks 6 days, 81% HC: 18.77 cm, 21 weeks 1 day, 44% AC: 16.7 cm, 21 weeks 5 days, 67% FL: 3.89 cm, 22 weeks 3 days, 87% EFW: 465 g, 1 lb. 0 oz., 90% FL/AC: 23.29 FL/BPD: 74.38 HC/AC: 1.12 GESTATIONAL AGE: Age by EDC: 21 weeks 0 days JUAN M by EDC: 07/08/2022 Ultrasound Age: 21 weeks 6 days Ultrasound JUAN M: 07/02/2022 FETUS 2: Heart Rate: 142.0 bpm H.B. /min Amniotic Fluid Volume: Subjectively normal position: Transverse presentation, transverse lie Placental Location: Posterior. Grade 0. Placental edge 5.7 cm from the cervical os Cervix Length: 4.9 cm, closed Normally visualized anatomy: Cerebellum, choroid plexus, cisterna magna, lateral cerebral ventricles, orbits, midline falx, hard palate, four-chamber heart, RVOT, LVOT, stomach, bladder, umbilical cord insertion into the abdomen, right upper extremity, left upper extremity, right lower extremity, left lower extremity Suboptimally visualized anatomy: Kidney, three-vessel cord, spine BIOMETRY: BPD: 5.3 cm 22 weeks 0 days, 85% HC: 19.7 cm 21 weeks 6 days, 77% AC:17.6 cm 22 weeks 4 days, 87% FL: 3.8 cm 22 weeks 2 days, 83% EFW: 497.0 grams 1 lb. 2 oz., greater than 97% FL/AC: 21.8 FL/BPD: 72.9 HC/AC: 1.1 GESTATIONAL AGE: Age by EDC: 21 weeks 0 days JUAN M by EDC: 07/08/2022 Ultrasound Age: 22 weeks 1 days Ultrasound JUAN M: 06/30/2022 IMPRESSION: Twin intrauterine gestation. Fetus 2 estimated weight greater than 97% Electronically authenticated by: BERHANE SALCIDO Date: 2022-02-25 18:17 Normal [facility] HEP B SURFACE ANTIGEN SCREEN on 01-04-2022 HBsAg Screen Negative Normal Negative [facility] Comment on above: Performed By: #### [facility] #### [facility] [address] [address] [address] Tegan Sarabia HEPATITIS C VIRUS AB W/ REFL EX QUANTon 01-04-2022 HCV AB 0.2 s/co ratio Normal 0.0-0.9 [facility] Comment on above: Performed By: #### C MP, URIC, LDH, ALT, AST #### [facility] [address] [place] [address] Dr. Tegan Sarabia Interpretation: Comment Normal [facility] Comment on above: Result Comment: Nega tive Not infected with HCV, unless recent infection is suspected or other evidence exists to indicate HCV infection. Performed By: #### C MP, URIC, LDH, ALT, AST #### [facility] [address] [place] [address] Dr. Tegan Sarabia HIV 1 AND 2 WITH REFLEXon HIV Screen 4th Generation wRfx Non-Reactive Normal Non Reactive [facility] Comment on above: Result Comment: HIV Negative HIV-1/HIV-2 antibodies and HIV-1 p24 antigen were NOT detected. There is no laboratory evidence of HIV infection. Performed By: #### H IV12 #### [facility] [address] [place] [address] Dr. Tegan Sarabia RPR QUANTon 01-04-2022 Rapid Plasma Reagin, Quant Non-Reactive Normal NonRea<1:1 [facility] Comment on above: Result Comment: Plea se Note: This test does not meet current guidelines for screening and diagnosis of syphilis. This test is intended for following treatment response in patients being treated for syphilis infection. To screen for syphilis infection, a reflex cascade that includes both RPR and a treponema-specific assay should be utilized, such as Treponema pallidum (Syphilis) Screening [place] (968317) or Rapid Plasma Reagin (RPR) Test With Reflex to Quantitative RPR and Confirmatory Treponema pallidum Antibodies (223023). Performed By: #### C MP, URIC, LDH, ALT, AST #### [facility] [address] [place] [address] Dr. Tegan Sarabia RUBELLA AB IGGon 01-04-2022 Rubella Antibodies, IgG 3.28 index Normal Immune >0.99 [facility] Comment on above: Result Comment: Non- immune <0.90 Equivocal 0.90 - 0.99 Immune >0.99 Performed By: #### C MP, URIC, LDH, ALT, AST #### [facility] [address] [place] [address] Dr. Tegan Sarabia CBC AUTO DIFFon 01-02-2022 BASO # 0.0 103/ul Normal 0.0-0.1 [facility] Comment on above: Performed By: #### C MP, URIC, LDH, ALT, AST #### [facility] [address] [place] [address] Dr. Tegan Sarabia Basophils/100 WBC (Bld) 0.2 % Normal 0.2-2.0 [facility] Comment on above: Performed By: #### C MP, URIC, LDH, ALT, AST #### [facility] [address] [place] [address] Dr. Tegan Sarabia EO # 0.2 103/ul Normal 0.0-0.7 [facility] Comment on above: Performed By: #### C MP, URIC, LDH, ALT, AST #### [facility] [address] [place] [address] Dr. Tegan Sarabia Eosinophils/100 WBC (Bld) 1.5 % Normal 0.9-7.0 [facility] Comment on above: Performed By: #### C MP, URIC, LDH, ALT, AST #### [facility] [address] [place] [address] Dr. Tegan Sarabia Erythrocyte distribution width (RBC) [Ratio] 12.8 % Normal 11.0-15.0 [facility] Comment on above: Performed By: #### C MP, URIC, LDH, ALT, AST #### [facility] [address] [place] [address] Dr. Tegan Sarabia Hematocrit (Bld) [Volume fraction] 39.4 % Normal 36.0-48.0 [facility] Comment on above: Performed By: #### C MP, URIC, LDH, ALT, AST #### [facility] [address] [place] [address] Dr. Tegan Sarabia Hemoglobin (Bld) [Mass/Vol] 13.5 g/dL Normal 12.0-16.0 [facility] Comment on above: Performed By: #### C MP, URIC, LDH, ALT, AST #### [facility] [address] [place] [address] Dr. Tegan Sarabia IG # 0.05 10e3/ul Critically high 0.00-0.03 [facility] Comment on above: Performed By: #### C MP, URIC, LDH, ALT, AST #### [facility] [address] [place] [address] Dr. Tegan Sarabia IG % 0.5 % Normal 0.0-0.5 [facility] Comment on above: Performed By: #### C MP, URIC, LDH, ALT, AST #### [facility] [address] [place] [address] Dr. Tegan Sarabia LYMPH # 1.7 103/ul Normal 1.2-3.8 [facility] Comment on above: Performed By: #### C MP, URIC, LDH, ALT, AST #### [facility] [address] [place] [address] Dr. Tegan Sarabia Lymphocytes/100 WBC (Bld) 15.5 % Critically low 20.5-60.0 [facility] Comment on above: Performed By: #### C MP, URIC, LDH, ALT, AST #### [facility] [address] [place] [address] Dr. Tegan Sarabia MANUAL DIFF REQ NO Normal [facility] Comment on above: Performed By: #### C MP, URIC, LDH, ALT, AST #### [facility] [address] [place] [address] Dr. Tegan Sarabia MCH (RBC) [Entitic mass] 30.9 pg Normal 26.7-34.0 [facility] Comment on above: Performed By: #### C MP, URIC, LDH, ALT, AST #### [facility] [address] [place] [address] Dr. Tegan Sarabia MCHC (RBC) [Mass/Vol] 34.3 g/dL Normal 29.9-35.2 [facility] Comment on above: Performed By: #### C MP, URIC, LDH, ALT, AST #### [facility] [address] [place] [address] Dr. Tegan Sarabia MCV (RBC) [Entitic vol] 90.2 fL Normal 81.0-99.0 [facility] Comment on above: Performed By: #### C MP, URIC, LDH, ALT, AST #### [facility] [address] [place] [address] Dr. Tegan Sarabia MONO # 0.5 103/ul Normal 0.3-0.8 [facility] Comment on above: Performed By: #### C MP, URIC, LDH, ALT, AST #### [facility] [address] [place] [address] Dr. Tegan Sarabia Monocytes/100 WBC (Bld) 5.0 % Normal 1.7-12.0 [facility] Comment on above: Performed By: #### C MP, URIC, LDH, ALT, AST #### [facility] [address] [place] [address] Dr. Tegan Sarabia NEUT # 8.4 103/ul Critically high 1.4-6.5 [facility] Comment on above: Performed By: #### C MP, URIC, LDH, ALT, AST #### [facility] [address] [place] [address] Dr. Tegan Sarabia Neutrophils/100 WBC (Bld) 77.3 % Critically high 43.0-75.0 [facility] Comment on above: Performed By: #### C MP, URIC, LDH, ALT, AST #### [facility] [address] [place] [address] Dr. Tegan Sarabia Platelet mean volume (Bld) [Entitic vol] 10.1 fL Normal 9.5-13.5 [facility] Comment on above: Performed By: #### C MP, URIC, LDH, ALT, AST #### [facility] [address] [place] [address] Dr. Tegan Sarabia PLT 245 103/ul Normal 150-450 [facility] Comment on above: Performed By: #### C MP, URIC, LDH, ALT, AST #### [facility] [address] [address] [address] Tegan Sarabia RBC 4.37 106/ul Normal 4.20-5.40 [facility] Comment on above: Performed By: #### C MP, URIC, LDH, ALT, AST #### [facility] [address] [address] [address] Tegan Sarabia WBC 10.8 103/ul Normal 4.0-11.0 [facility] Comment on above: Performed By: #### C MP, URIC, LDH, ALT, AST #### [facility] [address] [address] [address] Tegan Sarabia CULTURE URINEon 01-02-2022 CULTURE URINE Culture Observations: LIGHT GROWTH OF MIXED GENITAL SURESH. NO POTENTIAL PATHOGENS SEEN. Normal [facility] Comment on above: Performed By: #### C MP, URIC, LDH, ALT, AST #### [facility] [address] [address] [address] Tegan Sarabia GLYCOHEMOGLOBIN A1Con 2021 ADA RECOMMENDATION ADA THERAPEUTIC TARGET 6.0 - 7.0 ACTION SUGGESTED > 7.0 [facility] Comment on above: Performed By: #### C MP, URIC, LDH, ALT, AST #### [facility] [address] [address] [address] Tegan Sarabia Glucose [Mass/Vol] 100 mg/dL Normal [facility] Comment on above: Performed By: #### C MP, URIC, LDH, ALT, AST #### [facility] [address] [place] [address] Dr. Tegan Sarabia HbA1c (Bld) [Mass fraction] 5.1 % Normal <=6.0 [facility] Comment on above: Performed By: #### C MP, URIC, LDH, ALT, AST #### [facility] [address] [place] [address] Dr. Tegan Sarabia TIARA BOX TEST PT SEND OUTo n 01-02-2022 SENT TO REF LAB 01/02/2022 [facility] Comment on above: Performed By: #### N BOX #### [facility] [address] [place], [place] [address] Dr. Tegan Sarabia TYPE AND SCREENon 01-02-2022 TYPE AND SCREEN Negative Normal [facility] Comment on above: Performed By: #### C MP, URIC, LDH, ALT, AST #### [facility] [address] [place], [place] [address] Dr. Tegan Sarabia Encounters Encounter Date Encounter Type Care Provider Facility Start: 06-24-2024 End: 06-24-2024 Emergency department patient visit [facility] Start: 06-23-2024 End: 06-23-2024 Emergency department patient visit [facility] Start: 06-18-2022 End: 06-18-[address] DOCTOR LY Facility:[facility] Start: 06-13-2022 End: 06-16-2022 Evaluation and management of inpatient DR MIGUEL HERNANDEZ . Facility:[facility] Start: 06-05-2022 End: 06-05-[address] MIGUEL HERNANDEZ . Facility:[facility] Start: 05-28-2022 End: 05-29-[address] DOCTOR LY Facility:[facility] Start: 02-25-2022 End: 02-26-[address] MIGUEL HERNANDEZ . Facility:[facility] Start: 01-02-2022 End: 01-03-[address] MIGUEL HERNANDEZ . Facility:[facility] Procedures Date Procedure Procedure Detail Performing Clinician Start: 06-13-2022 Extraction of Produc ts of Conception, Low Cervical, Open Approach DR DOCTOR LY Start: 06-13-2022 Resection of Bilater al Fallopian Tubes, Open Approach DR DOCTOR LY Payers Date Payer Category Payer Unknown [id number] 2.16.84 [id number] 1998 Unknown [id number] 2.16.84 [id number] 1998 Unknown [id number] 2.16.84 [id number] 1998 Unknown [id number] 2.16.84 [id number] 1998 Unknown [id number] 2.16.84 [id number] 1998 Unknown [id number] 2.16.84 [id number] 1998 Unknown [id number] 2.16.8 [id number] 1998 Unknown [id number] 2.16.8 [id number] 1959 Self-pay 1959 Unknown [id number] Unknown [id number] 2.16.84 [id number] Summary Purpose Family History No Family History Records FoundNo Family History Records Found Advance Directives No Advanced Directives Records FoundNo Advanced Directives Records Found Additional Source Comments INFORMATION SOURCE (unrecogn ized section and content) DATE CREATED AUTHOR 12/09/2022 [facility] DATE CREATED AUTHOR AUTHOR'S ORGANIZ ATION 06/25/2024 [facility] FOR RECORDS PERTAINING TO PATIENTS WHO ARE OR HAVE BEEN ENROLLED IN A CHEMICAL DEPENDENCY/SUBSTANCEABUSE PROGRAM, SOME INFORMATION MAY BE OMITTED. This clinical summary was aggregated from multiple sources. Caution should be exercised in using it in the provision of clinical care. This summary normalizes information from multiple sources, and as a consequence, information in this document may materially change the coding, format and clinical context of patient data. In addition, data may be omitted in some cases. CLINICAL DECISIONS SHOULD BE BASED ON THE PRIMARY CLINICAL RECORDS. [facility] [employer] provides no warranty or guarantee of the accuracy or completeness of information in this document.
--- NOTE | 2025-01-09 15:50 | ED.ABDPAIN1 ---
HPI - Abdominal Pain General Chief Complaint: Abdominal Pain Stated Complaint: ABDOMINAL PAIN, BACK PAIN Time Seen by Provider: 01/09/25 15:50 Mode of arrival: ambulance History of Present Illness HPI narrative: The patient is coming to the ER with a severe bilateral flank pain associated with suprapubic pain that started this morning, associated with multiple episodes of nausea and vomiting, patient mentioned that she did have some drinks of alcohol yesterday but she did not drink more than usual, and she never had similar pain before, patient denies any burning with urination. She mentioned that she is still having her menstrual period at the moment. The patient denies having pain with menstruation before Related Data Allergies Allergy/AdvReac Type Severity Reaction Status Date / Time No Known Drug Allergies Allergy Verified 06/24/24 11:51 Review of Systems ROS Status of ROS 10 or more systems reviewed and unremarkable except as noted in history and below [facility] Medical History (Updated 01/09/25 @ 15:57 by Lisa Uribe) Anxiety ?F41.9 - Anxiety disorder, unspecified (ICD-10) Surgical History (Updated 01/09/25 @ 15:56 by Lisa Uribe) History of tubal ligation ?Z98.51 - Tubal ligation status (ICD-10) Social History Little interest or pleasure in doing things: not at all Feeling down, depressed, or hopeless: not at all Exam Narrative Exam Narrative: Nurses notes and vital signs reviewed and patient is not hypoxic. General: Well-appearing and in no apparent distress. Skin: Warm, dry, no pallor noted. No rash. Head: Normocephalic, atraumatic. Neck: Supple, non-tender. Cardiovascular: Regular Rate and Rhythm without murmur, gallop or rub. Respiratory: No accessory muscle use or respiratory distress. Lungs are clear to auscultation, no wheezing, rales or rhonchi Chest Wall: no tenderness Back: No midline thoracic or lumbar vertebral tenderness. Bilateral CVA tenderness Musculoskeletal: normal ROM, no calf or popliteal tenderness, no lower extremity edema/swelling GI: Abdomen is soft, non-distended. Normal bowel sounds. No masses appreciated. No tenderness to palpation. No rebound, guarding, or rigidity noted. Neurological: A&O x4. No cranial nerve dysfunction observed. Constitutional Vital Signs, click to edit/add: Last Vital Signs Temp 98 F 01/09/25 15:45 Pulse 55 L 01/09/25 15:45 Resp 16 01/09/25 15:45 BP 176/99 H 01/09/25 15:45 Pulse Ox 100 01/09/25 15:45 O2 Del Method Room Air 01/09/25 15:45 Course Vital Signs Vital signs: Vital Signs Temperature 98 F 01/09/25 15:45 Pulse Rate 55 L 01/09/25 15:45 Respiratory Rate 16 01/09/25 15:45 Blood Pressure 176/99 H 01/09/25 15:45 Pulse Oximetry 100 01/09/25 15:45 Oxygen Delivery Method Room Air 01/09/25 15:45 Temperature 98 F 01/09/25 15:45 Pulse Rate 55 L 01/09/25 15:45 Respiratory Rate 16 01/09/25 15:45 Blood Pressure 176/99 H 01/09/25 15:45 Pulse Oximetry 100 01/09/25 15:45 Oxygen Delivery Method Room Air 01/09/25 15:45 MDM - Abdominal Pain MDM Narrative Medical decision making narrative: The patient was vomiting upon arrival she was treated with Zofran as well as Toradol and IV fluid Lab Data Labs: Lab Results 01/09/25 01/09/25 Range/Units 16:05 17:22 WBC 12.0 H (4.0-11.0) 10^3/uL RBC 4.85 (4.20-5.40) 10^6/uL Hgb 14.5 (12.0-16.0) g/dL Hct 43.9 (36.0-48.0) % MCV 90.5 (81.0-99.0) fL MCH 29.9 (26.7-34.0) pg MCHC 33.0 (29.9-35.2) g/dL RDW 13.8 (11.0-15.0) % Plt Count 299 (150-450) 10^3/uL MPV 10.7 (9.5-13.5) fL Neut % (Auto) 86.6 H (43.0-75.0) % Lymph % (Auto) 9.4 L (20.5-60.0) % [place] % (Auto) 3.1 (1.7-12.0) % Eos % (Auto) 0.4 L (0.9-7.0) % Baso % (Auto) 0.2 (0.2-2.0) % Neut # (Auto) 10.4 H (1.4-6.5) 10^3/uL Lymph # (Auto) 1.1 L (1.2-3.8) 10^3/uL [place] # (Auto) 0.4 (0.3-0.8) 10^3/uL Eos # (Auto) 0.1 (0.0-0.7) 10^3/uL Baso # (Auto) 0.0 (0.0-0.1) 10^3/uL Abs Immat Gran (auto) 0.04 H (0.00-0.03) 10^3/uL Imm/Tot Granulo (auto) 0.3 (0.0-0.5) % Sodium 141 (136-145) mmol/L Potassium 3.3 L (3.5-5.1) mmol/L Chloride 103 (98-107) mmol/L Carbon Dioxide 29.1 (21.0-32.0) mmol/L Anion Gap 12.2 BUN 10.0 (7.0-18.0) mg/dL Creatinine 0.71 (0.55-1.02) mg/dL Est GFR ( Amer) >60 (>=60 mL/min/1.73m^2) Est GFR (Non-Af Amer) >60 (>=60 mL/min/1.73m^2) BUN/Creatinine Ratio 14.1 Glucose 100 (74-106) mg/dL Calcium 8.6 (8.5-10.1) mg/dL Total Bilirubin 0.5 (0.2-1.0) mg/dL AST 18 (15-37) U/L ALT 35 (14-59) U/L Alkaline Phosphatase 67 (46-116) U/L Total Protein 7.2 (6.4-8.2) g/dL Albumin 3.6 (3.4-5.0) g/dL Globulin 3.6 g/dL Albumin/Globulin Ratio 1.0 Lipase 53.0 (16.0-77.0) U/L Serum HCG, Qual Negative (NEGATIVE) Urine Color Yellow (YELLOW) Urine Clarity Sl cloudy (CLEAR) Urine pH 8.0 (5.0-9.0) Ur Specific [place] 1.020 (1.005-1.025) Urine Protein Trace (NEG/TRACE) mg/dL Urine Glucose (UA) Negative (NEGATIVE) mg/dL Urine Ketones 15 A (NEGATIVE) mg/dL Urine Occult Blood Moderate A (NEGATIVE) Urine Nitrite Negative (NEGATIVE) Urine Bilirubin Negative (NEGATIVE) Urine Urobilinogen 2.0 A (0.2-1.0) EU/dL Ur Leukocyte Esterase Negative (NEGATIVE) Urine RBC 0-2 (0-2) #/HPF Urine WBC 0-2 A (NONE SEEN) #/HPF Ur Squamous Epith Cells Moderate A (NONE/RARE) #/LPF Ur Transition Epith Cell Rare A (NONE SEEN) #/LPF Urine Crystals Seen A (None Seen) #/HPF Amorphous Sediment Moderate Urine Bacteria Trace A (NONE SEEN) #/HPF Urine Casts None seen (NONE SEEN) #/LPF Urine Mucus None seen (NONE SEEN) Ur Culture Indicated? No Ethanol Quant <3 mg/dL Discharge Plan Discharge Patient Disposition: Still a Patient
[2025-01-09] MEDS: KETOROLAC TROMETHAMINE 30 MG/ML VIAL 15 MG IVP (16:04)
[2025-01-09] MEDS: ONDANSETRON PF 4 MG/2 ML VIAL IV (16:05)
[2025-01-09] MEDS: 0.9 % SODIUM CHLORIDE 1,000 ML 1000 ML IV (16:05)
[2025-01-09 16:19] LABS: Basophils Percent Auto 0.2 % (0.2-2.0); Eosinophils Absolute Auto 0.1 10^3/uL (0.0-0.7); Eosinophils Percent Auto 0.4 % (0.9-7.0); Hematocrit 43.9 % (36.0-48.0); Hemoglobin 14.5 g/dL (12.0-16.0); Immature Granulocytes Abs Auto 0.04 10^3/uL (0.00-0.03); Immature Granulocytes Pct Auto 0.3 % (0.0-0.5); Lymphocytes Absolute Auto 1.1 10^3/uL (1.2-3.8); Lymphocytes Percent Auto 9.4 % (20.5-60.0); Mean Corpuscular Hemoglobin 29.9 pg (26.7-34.0); Mean Corpuscular Volume 90.5 fL (81.0-99.0); Mean Platelet Volume 10.7 fL (9.5-13.5); Monocytes Absolute Auto 0.4 10^3/uL (0.3-0.8); Monocytes Percent Auto 3.1 % (1.7-12.0); Neutrophils Absolute Auto 10.4 10^3/uL (1.4-6.5); Neutrophils Percent Auto 86.6 % (43.0-75.0); Platelet Count 299 10^3/uL (150-450); Red Blood Count 4.85 10^6/uL (4.20-5.40); Red Cell Distribution Width 13.8 % (11.0-15.0)
[2025-01-09 16:34] LABS: Alanine Aminotransferase 35 U/L (14-59); Albumin Level 3.6 g/dL (3.4-5.0); Alkaline Phosphatase 67 U/L (46-116); Anion Gap 12.2; Aspartate Amino Transferase 18 U/L (15-37); BUN Creatinine Ratio 14.1; Bilirubin Total 0.5 mg/dL (0.2-1.0); Calcium 8.6 mg/dL (8.5-10.1); Carbon Dioxide 29.1 mmol/L (21.0-32.0); Chloride 103 mmol/L (98-107); Estimated GFR (African America >60 (>=60 mL/min/1.73m^2); Estimated GFR (Non-African Ame >60 (>=60 mL/min/1.73m^2); Ethanol <3 mg/dL; Globulin 3.6 g/dL; Glucose 100 mg/dL (74-106); HCG Qualitative NEGATIVE (NEGATIVE); Internal Control Within Normal Limits; Potassium 3.3 mmol/L (3.5-5.1); Sodium 141 mmol/L (136-145); Total Protein 7.2 g/dL (6.4-8.2)
[2025-01-09 17:36] LABS: Bilirubin Urine NEGATIVE (NEGATIVE); Blood Urine MODERATE (NEGATIVE); Clarity Urine SL CLOUDY (CLEAR); Color Urine YELLOW (YELLOW); Glucose Urine UA NEGATIVE (NEGATIVE); Ketones Urine 15 mg/dL (NEGATIVE); Leukocyte Esterase Urine NEGATIVE (NEGATIVE); Nitrite Urine NEGATIVE (NEGATIVE); Protein Urine TRACE mg/dL (NEG/TRACE)
[2025-01-09 17:38] LABS: Urine Microscopic Indicated YES
[2025-01-09 17:45] LABS: Amorphous Sediment Urine MODERATE; Bacteria Urine TRACE #/HPF (NONE SEEN); Cast Seen? NONE SEEN #/LPF (NONE SEEN); Crystals Seen? Seen #/HPF (None Seen); Mucus Urine NONE SEEN (NONE SEEN); RBC Urine 0-2 #/HPF (0-2); Squamous Epithelial Cell Urine MODERATE #/LPF (NONE/RARE); Transitional Epi Cells Urine RARE #/LPF (NONE SEEN); Urine Culture Indicated NO; WBC Urine 0-2 #/HPF (NONE SEEN)
[2025-01-09 20:47] VITALS: BP 143/81; PULSE 80; O2SAT 99
--- NOTE | 2025-01-09 21:25 | ED.ABDPAIN1 ---
HPI - Abdominal Pain General Chief Complaint: Abdominal Pain Stated Complaint: ABDOMINAL PAIN, BACK PAIN Time Seen by Provider: 01/09/25 15:50 Mode of arrival: ambulance History of Present Illness HPI narrative: This 24-year-old female was signed out to me at shift change pending ultrasound of the pelvis. She presents for evaluation of severe lower abdominal pain. The patient states she started her period yesterday and was bleeding yesterday but did not have any menstrual bleeding today until after her ultrasound. She states she had acute onset of lower abdominal pain that went into her back associated with nausea vomiting and she was also having diarrhea at that time. She has had intermittent episodes of nausea but no additional episodes of diarrhea while in the emergency department. On reevaluation she appears to be feeling better. I reviewed her ultrasound with her which is fluid within the endometrial cavity presumed blood products with nonvisualization of either ovary. The tech noted that there was a large amount of bowel grasp obstructing her ovaries. The CT scan of the abdomen pelvis is negative for acute findings. I explained to the patient that my this patient is that her abdominal cramps are related to the nausea vomiting and diarrhea and may be to some degree menstrual cramps. She will be given 2 [place] and a Zofran to take home to use as needed tonight and prescription for Zofran, ibuprofen and Bentyl. Related Data Allergies Allergy/AdvReac Type Severity Reaction Status Date / Time No Known Drug Allergies Allergy Verified 06/24/24 11:51 [facility] Medical History (Updated 01/09/25 @ 21:24 by Anu Barrios MD) Anxiety ?F41.9 - Anxiety disorder, unspecified (ICD-10) Surgical History (Updated 01/09/25 @ 15:56 by Lisa Uribe) History of tubal ligation ?Z98.51 - Tubal ligation status (ICD-10) Social History Little interest or pleasure in doing things: not at all Feeling down, depressed, or hopeless: not at all Exam Constitutional Vital Signs, click to edit/add: Last Vital Signs Temp 98 F 01/09/25 15:45 Pulse 80 01/09/25 20:47 Resp 16 01/09/25 20:47 BP 143/81 H 01/09/25 20:47 Pulse Ox 99 01/09/25 20:47 O2 Del Method Room Air 01/09/25 20:47 Course Vital Signs Vital signs: Vital Signs Temperature 98 F 01/09/25 15:45 Pulse Rate 55 L 01/09/25 15:45 Respiratory Rate 16 01/09/25 15:45 Blood Pressure 176/99 H 01/09/25 15:45 Pulse Oximetry 100 01/09/25 15:45 Oxygen Delivery Method Room Air 01/09/25 15:45 Temperature 98 F 01/09/25 15:45 Pulse Rate 80 01/09/25 20:47 Respiratory Rate 16 01/09/25 20:47 Blood Pressure 143/81 H 01/09/25 20:47 Pulse Oximetry 99 01/09/25 20:47 Oxygen Delivery Method Room Air 01/09/25 20:47 MDM - Abdominal Pain Lab Data Labs: Lab Results 01/09/25 01/09/25 Range/Units 16:05 17:22 WBC 12.0 H (4.0-11.0) 10^3/uL RBC 4.85 (4.20-5.40) 10^6/uL Hgb 14.5 (12.0-16.0) g/dL Hct 43.9 (36.0-48.0) % MCV 90.5 (81.0-99.0) fL MCH 29.9 (26.7-34.0) pg MCHC 33.0 (29.9-35.2) g/dL RDW 13.8 (11.0-15.0) % Plt Count 299 (150-450) 10^3/uL MPV 10.7 (9.5-13.5) fL Neut % (Auto) 86.6 H (43.0-75.0) % Lymph % (Auto) 9.4 L (20.5-60.0) % [place] % (Auto) 3.1 (1.7-12.0) % Eos % (Auto) 0.4 L (0.9-7.0) % Baso % (Auto) 0.2 (0.2-2.0) % Neut # (Auto) 10.4 H (1.4-6.5) 10^3/uL Lymph # (Auto) 1.1 L (1.2-3.8) 10^3/uL [place] # (Auto) 0.4 (0.3-0.8) 10^3/uL Eos # (Auto) 0.1 (0.0-0.7) 10^3/uL Baso # (Auto) 0.0 (0.0-0.1) 10^3/uL Abs Immat Gran (auto) 0.04 H (0.00-0.03) 10^3/uL Imm/Tot Granulo (auto) 0.3 (0.0-0.5) % Sodium 141 (136-145) mmol/L Potassium 3.3 L (3.5-5.1) mmol/L Chloride 103 (98-107) mmol/L Carbon Dioxide 29.1 (21.0-32.0) mmol/L Anion Gap 12.2 BUN 10.0 (7.0-18.0) mg/dL Creatinine 0.71 (0.55-1.02) mg/dL Est GFR ( Amer) >60 (>=60 mL/min/1.73m^2) Est GFR (Non-Af Amer) >60 (>=60 mL/min/1.73m^2) BUN/Creatinine Ratio 14.1 Glucose 100 (74-106) mg/dL Calcium 8.6 (8.5-10.1) mg/dL Total Bilirubin 0.5 (0.2-1.0) mg/dL AST 18 (15-37) U/L ALT 35 (14-59) U/L Alkaline Phosphatase 67 (46-116) U/L Total Protein 7.2 (6.4-8.2) g/dL Albumin 3.6 (3.4-5.0) g/dL Globulin 3.6 g/dL Albumin/Globulin Ratio 1.0 Lipase 53.0 (16.0-77.0) U/L Serum HCG, Qual Negative (NEGATIVE) Urine Color Yellow (YELLOW) Urine Clarity Sl cloudy (CLEAR) Urine pH 8.0 (5.0-9.0) Ur Specific [place] 1.020 (1.005-1.025) Urine Protein Trace (NEG/TRACE) mg/dL Urine Glucose (UA) Negative (NEGATIVE) mg/dL Urine Ketones 15 A (NEGATIVE) mg/dL Urine Occult Blood Moderate A (NEGATIVE) Urine Nitrite Negative (NEGATIVE) Urine Bilirubin Negative (NEGATIVE) Urine Urobilinogen 2.0 A (0.2-1.0) EU/dL Ur Leukocyte Esterase Negative (NEGATIVE) Urine RBC 0-2 (0-2) #/HPF Urine WBC 0-2 A (NONE SEEN) #/HPF Ur Squamous Epith Cells Moderate A (NONE/RARE) #/LPF Ur Transition Epith Cell Rare A (NONE SEEN) #/LPF Urine Crystals Seen A (None Seen) #/HPF Amorphous Sediment Moderate Urine Bacteria Trace A (NONE SEEN) #/HPF Urine Casts None seen (NONE SEEN) #/LPF Urine Mucus None seen (NONE SEEN) Ur Culture Indicated? No Ethanol Quant <3 mg/dL Discharge Plan Discharge Chief Complaint: Abdominal Pain Clinical Impression: Lower abdominal pain, Gastroenteritis Patient Disposition: Home, Self-Care Time of Disposition Decision: 21:23 Condition: Good Print Language: Persian Instructions: Acute Nausea and Vomiting (ED), Acute Diarrhea (ED), Abdominal Pain (ED) Referrals: [facility] [Primary Care Provider] - 1 week
[2025-01-09 21:30] VITALS: PULSE 80; O2SAT 99
== END 2025-01-09 21:33 | disposition home or self-care (01) ==
PROVIDERS: Emergency Medicine; Emergency Provider Emergency Medicine
DX: R10.30 Lower abdominal pain, unspecified (principal); K52.9 Noninfective gastroenteritis and colitis, unspecified; Z98.51 Tubal ligation status
CPT/HCPCS: 36415; 74176; 76830; 80053; 80320; 81001; 83690; 84703; 85025; 96361; 96374; 96375; 99285; J1885; J2405